=== PATIENT | male | born 1965 | race Two or more races ===

== ENCOUNTER 2018-07-05 11:23 | Inpatient (IN) | payer OTHER ==
[2018-07-05 13:21] VITALS: BMI 21.8
--- NOTE | 2018-07-05 17:04 | HP ---
CIWA Score - CIWA Score Nausea/Vomitin Muscle Tremors: 2 Anxiety: 2 Agitation: 2 Paroxysmal Sweats: 2 Orientation: 0-Oriented Tacttile Disturbances: 1-Very Mild Itch/Numbness Auditory Disturbances: 1-Very Mild Visual Disturbances: 0-None Headache: 0-None Present CIWA-Ar Total Score: 13 Admission [facility] - HPI Chief Complaint: alcohol withdrawal symptoms Allergies/Adverse Reactions: Allergies Allergy/AdvReac Type Severity Reaction Status Date / Time NKA Allergy Uncoded 07/05/18 13:53 NO NKOWN DRUG ALLERGY Allergy Uncoded 07/05/18 13:53 History of Present Illness: 52 yo male with hx of alcohol, heroin, cocaine and marijuana dependence is here seeking detox. Last detox [facility] in 2010. MMTP: Hever Osorio [phone] on 220 mg, last medicated 07/14/18.PMHX: HIV+, Hep C, depression. Denies suicidal / homicidal ideation, reports hx of suicide attempt in 1999. Reports no significant period of sobriety. Exam Limitations: No Limitations - Ebola screening Have you traveled outside of the country in the last 21 days: No Have you had contact with anyone from an Ebola affected area: No Have you been sick,other than usual withdrawal symptoms: No Do you have a fever: No - Review of Systems Constitutional: Chills, Diaphoresis, Changes in sleep, Other (fatigue) EENT: reports: No Symptoms Reported, Dental Problems (poro dentition) Respiratory: reports: No Symptoms reported Cardiac: reports: No Symptoms Reported GI: reports: Poor Appetite, Poor Fluid Intake, Vomiting, Indigestion : reports: No Symptoms Reported Musculoskeletal: reports: No Symptoms Reported Integumentary: reports: Pruritus (left hand) Neuro: reports: No Symptoms reported Endocrine: reports: Increased Thirst Hematology: reports: See HPI Psychiatric: reports: Orientated x3, Anxious Other Systems: Reviewed and Negative Patient History - Patient Medical History Hx Anemia: No Hx Asthma: No Hx Chronic Obstructive Pulmonary Disease (COPD): No Hx Cancer: No Hx Cardiac Disorders: No Hx Congestive Heart Failure: No Hx Hypertension: No Hx Hypercholesterolemia: No Hx Pacemaker: No HX Cerebrovascular Accident: No Hx Seizures: No Hx Dementia: No Hx Diabetes: No Hx Gastrointestinal Disorders: No Hx Liver Disease: Yes (Hep C ) Hx Genitourinary Disorders: No Hx Sexually Transmitted Disorders: No Hx Renal Disease (ESRD): No Hx Thyroid Disease: No Hx Human Immunodeficiency Virus (HIV): Yes Hx Hepatitis C: Yes Hx Depression: Yes Hx Suicide Attempt: Yes (1999) Hx Schizophrenia: No - Patient Surgical History Past Surgical History: No Hx Neurologic Surgery: No Hx Cataract Extraction: No Hx Cardiac Surgery: No Hx Lung Surgery: No Hx Breast Surgery: No Hx Breast Biopsy: No Hx Abdominal Surgery: No Hx Appendectomy: No Hx Cholecystectomy: No Hx Genitourinary Surgery: No Hx Section: No Hx Orthopedic Surgery: No Anesthesia Reaction: No - PPD History Previous Implant?: No Documented Results: Negative w/o proof Implanted On Prior [facility] Admission?: No PPD to be Administered?: Yes - Smoking Cessation Smoking history: Current every day smoker Have you smoked in the past 12 months: Yes Aproximately how many cigarettes per day: 10 Hx Chewing Tobacco Use: No Initiated information on smoking cessation: Yes 'Breaking Loose' booklet given: 07/05/18 - Substance & Tx. History Hx Alcohol Use: Yes Hx Substance Use: Yes Substance Use Type: Alcohol, Cocaine, Heroin, Marijuana Hx Substance Use Treatment: Yes ([facility] 2010) - Substances Abused Alcohol Route: Oral Frequency: Daily Amount used: VODKA- 4PTS BEERS- 5CANS Age of first use: 8 Date of Last Use: 07/05/18 Heroin Route: Inhalation Frequency: 1-2 times per week Amount used: 2BAGS Age of first use: 12 Date of Last Use: 07/02/18 Cocaine Route: Inhalation Frequency: Daily Amount used: 5BAGS Age of first use: 9 Date of Last Use: 07/05/18 Family Disease History - Family Disease History Family History: Unable to Obtain Admission Physical Exam S - Vital Signs Vital Signs: Vital Signs - 24 hr 07/05/18 13:11 Temperature 97.1 F L Pulse Rate 61 Respiratory 18 Rate Blood Pressure 106/71 - Physical General Appearance: Yes: Disheveled, Thin, Sweating, Anxious HEENTM: Yes: EOMI, Hearing grossly Normal, Normal ENT Inspection, Normocephalic , Normal Voice, JAYCEE, Pharynx Normal, Tm's normal, Other (poor dentition) Respiratory: Yes: Chest Non-Tender, Lungs Clear, Normal Breath Sounds, No Respiratory Distress, No Accessory Muscle Use Neck: Yes: No masses,lesions,Nodules, Trachea in good position Breast: Yes: Breast Exam Deferred Cardiology: Yes: Regular Rhythm, Regular Rate Abdominal: Yes: Normal Bowel Sounds, Non Tender, Soft Genitourinary: Yes: Within Normal Limits Back: Yes: Normal Inspection Musculoskeletal: Yes: full range of Motion, Gait Steady, Pelvis Stable Extremities: Yes: Normal Capillary Refill, Normal Inspection, Normal Range of Motion, Non-Tender Neurological: Yes: review trainer II-XII NML intact, Fully Oriented, Alert, Motor Strength 5/5, Depressed Affect Integumentary: Yes: Within Normal Limits, Warm, Diaphoresis Lymphatic: Yes: Within Normal Limits - Diagnostic (1) Opioid dependence on agonist therapy Current Visit: Yes Status: Acute (2) Alcohol dependence with withdrawal Current Visit: Yes Status: Acute Qualifiers: Complication of substance-induced condition: uncomplicated Qualified Code(s ): F10.230 - Alcohol dependence with withdrawal, uncomplicated (3) Marijuana dependence Current Visit: Yes Status: Acute (4) Cocaine dependence Current Visit: Yes Status: Acute Qualifiers: Substance use status: uncomplicated Qualified Code(s): F14.20 - Cocaine dependence, uncomplicated (5) HIV (human immunodeficiency virus infection) Current Visit: Yes Status: Chronic Comment: No meds reported (6) Hepatitis C Current Visit: Yes Status: Chronic Qualifiers: Viral hepatitis chronicity: chronic Hepatic coma status: without hepatic coma Qualified Code(s): B18.2 - Chronic viral hepatitis C Cleared for Admission [facility] - Detox or Rehab [facility] Level of Care: Medically Managed Detox Regimen/Protocol: Librium [facility] Breath Alcohol Content Breath Alcohol Content: 0 Urine Drug Screen - Results Drug Screen Negative: No Urine Drug Screen Results: TASHA-Cocaine, PCP-Phencyclidine, MTD-Methadone
[2018-07-05] MEDS ORDERED: MENTHOL/PHENOL 1 EACH UD MM PRN (17:09)
[2018-07-05] MEDS ORDERED: IBUPROFEN 400 MG TABLET (FP) PO PRN (17:09)
[2018-07-05] MEDS ORDERED: MAG HYDROX/AL HYDROX/SIMETH 30 ML UNIT-DOSE CUP PO PRN (17:09)
[2018-07-05] MEDS ORDERED: MAGNESIUM HYDROX 2400MG/30ML ORAL SUSPENSION 30 ML CUP PO PRN (17:09)
[2018-07-05] MEDS ORDERED: LOPERAMIDE HCL 2 MG CAPSULE PO PRN (17:09)
[2018-07-05] MEDS ORDERED: ACETAMINOPHEN 325 MG TABLET (FP) PO PRN (17:09)
[2018-07-05] MEDS ORDERED: chlordiazePOXIDE HCL 25 MG CAPSULE PO PRN (17:09)
[2018-07-05] MEDS ORDERED: hydrOXYzine PAMOATE 50 MG CAPSULE (FP) PO PRN (17:09)
[2018-07-05] MEDS ORDERED: NICOTINE POLACRILEX 2 MG GUM BC PRN (17:09)
[2018-07-05] MEDS ORDERED: P-EPHED 60MG/TRIPROLIDI 2.5MG TABLET PO PRN (17:09)
[2018-07-05] MEDS ORDERED: MAGNESIUM CITRATE 300 ML BOTTLE PO PRN (17:09)
[2018-07-05] MEDS ORDERED: guaiFENesin/D-METHORPHAN HB 10 ML UNIT-DOSE CUPS PO PRN (17:09)
[2018-07-05] MEDS ORDERED: chlordiazePOXIDE HCL 25 MG CAPSULE PO ONE (17:45)
[2018-07-05] MEDS ORDERED: MELATONIN 5 MG TABLETS PO PRN (22:00)
[2018-07-05] MEDS: THIAMINE HCL 100 MG TABLET (FP) PO SCH (22:08)
[2018-07-05] MEDS: chlordiazePOXIDE HCL 25 MG CAPSULE PO SCH (22:09)
[2018-07-06] MEDS: chlordiazePOXIDE HCL 25 MG CAPSULE PO SCH ×4 (05:12→22:08)
--- NOTE | 2018-07-06 08:42 | EKG ---
Test Reason : Blood Pressure : / mmHG Vent. Rate : 056 BPM Atrial Rate : 056 BPM P-R Int : 164 ms QRS Dur : 114 ms QT Int : 462 ms P-R-T Axes : 006 -64 051 degrees QTc Int : 445 ms SINUS BRADYCARDIA INCOMPLETE RIGHT BUNDLE BRANCH BLOCK LEFT ANTERIOR FASCICULAR BLOCK ABNORMAL ECG NO PREVIOUS ECGS AVAILABLE Confirmed by UYEN SANDOVAL MD ([id number]) on 07/06/2018 8:41:59 AM Referred By: Confirmed By:UYEN SANDOVAL MD
--- NOTE | 2018-07-06 08:44 | EKG ---
Test Reason : Blood Pressure : / mmHG Vent. Rate : 049 BPM Atrial Rate : 049 BPM P-R Int : 180 ms QRS Dur : 104 ms QT Int : 478 ms P-R-T Axes : 061 -68 052 degrees QTc Int : 431 ms SINUS BRADYCARDIA INCOMPLETE RIGHT BUNDLE BRANCH BLOCK LEFT ANTERIOR FASCICULAR BLOCK SEPTAL INFARCT , AGE UNDETERMINED ABNORMAL ECG NO PREVIOUS ECGS AVAILABLE Confirmed by UYEN SANDOVAL MD ([id number]) on 07/06/2018 8:44:13 AM Referred By: Confirmed By:UYEN SANDOVAL MD
[2018-07-06] MEDS: PRENATAL VITAMINS W/ FOLIC ACID TABLET (FP) PO SCH (10:15)
[2018-07-06] MEDS: NICOTINE 14 MG/24 HOURS TOPICAL PATCH TD SCH (10:15)
[2018-07-06 10:41] LABS: HEMATOCRIT 39.4 % (35.4-49); MCH 32.5 pg (25.7-33.7); MCHC 33.1 g/dl (32.0-35.9); MEAN CELL VOLUME 98.3 fl (80-96); MEAN PLT VOLUME 8.3 fl (7.5-11.1); PLATELET COUNT 266 K/MM3 (134-434); RBC 4.01 M/mm3 (4.00-5.60); RDW 14.5 % (11.9-15.9); WHITE BLOOD COUNT 6.6 K/mm3 (4.0-10.0)
[2018-07-06 10:58] LABS: CHLORIDE 106 mmol/L (98-107); POTASSIUM 3.9 mmol/L (3.5-5.1); SODIUM 143 mmol/L (136-145)
[2018-07-06 11:10] LABS: ALBUMIN 3.5 g/dl (3.4-5.0); ALK PHOS 130 U/L (45-117); ANION GAP 7 (8-16); BILIRUBIN,TOTAL 0.2 mg/dL (0.2-1.0); BLOOD UREA NITROGEN 20 mg/dL (7-18); CALCIUM 8.3 mg/dL (8.5-10.1); CO2 30 mmol/L (21-32); CREATININE 1.2 mg/dL (0.7-1.3); GLUCOSE,RANDOM 111 mg/dL (74-106); SGOT/AST 23 U/L (15-37); SGPT/ALT 22 U/L (12-78); TOT PROT 7.4 g/dl (6.4-8.2)
--- NOTE | 2018-07-06 11:44 | PN ---
[facility] CIWA - CIWA Score Nausea/Vomitin-No Nausea/No Vomiting Muscle Tremors: 2 Anxiety: 4-Mod. Anxious/Guarded Agitation: 2 Paroxysmal Sweats: 3 Orientation: 0-Oriented Tacttile Disturbances: 2-Mild Itch/Numbness/Burn Auditory Disturbances: 0-None Visual Disturbances: 3-Moderate Sensitivity Headache: 0-None Present CIWA-Ar Total Score: 16 BHS Progress Note (SOAP) Subjective: Fatigue, Sweating, Tremors. Objective: PATIENT A & O X 3, OBSERVED AMBULATING ON UNIT. NO ACUTE DISTRESS. 07/06/18 11:41 Vital Signs Temperature 97.1 F L 07/06/18 09:46 Pulse Rate 59 L 07/06/18 09:46 Respiratory Rate 18 07/06/18 09:46 Blood Pressure 130/76 07/06/18 09:46 O2 Sat by Pulse Oximetry (%) Laboratory Tests 07/06/18 07/06/18 06:00 06:00 WBC 6.6 RBC 4.01 Hgb 13.0 Hct 39.4 MCV 98.3 H MCH 32.5 MCHC 33.1 RDW 14.5 Plt Count 266 MPV 8.3 Sodium 143 Potassium 3.9 Chloride 106 Carbon Dioxide 30 Anion Gap 7 L BUN 20 H Creatinine 1.2 Creat Clearance w eGFR > 60 Random Glucose 111 H Calcium 8.3 L Total Bilirubin 0.2 AST 23 ALT 22 Alkaline Phosphatase 130 H Total Protein 7.4 Albumin 3.5 LABS NOTED. RPR, UA RESULTS PENDING. 07/06/18 11:42 Assessment: 07/06/18 11:42 WITHDRAWAL SYMPTOMS. Plan: CONTINUE DETOX. NOTE: DAILY MMTP DOSE WAS VERIFIED YESTERDAY (07/05/2018) AT TIME OF ADMISSION TO DETOX. HOWEVER, DOSE NOT ORDERED AT THAT TIME. MMTP DAILY DOSE RESUMED TODAY.
[2018-07-06] MEDS ORDERED: METHADONE HCL 10 MG TABLET PO SCH (11:45)
[2018-07-06] MEDS ORDERED: METHADONE HCL 10 MG TABLET ONE (11:52)
[2018-07-06] MEDS ORDERED: METHADONE HCL 40 MG DISPERSABLE TABLET ONE (11:53)
[2018-07-06] MEDS: METHADONE 200 MG, METHADONE 20 MG PO SCH (11:55)
--- NOTE | 2018-07-06 14:10 | CONSULT ---
[facility] Psychiatric Consult - Data Date of interview: 07/06/18 Admission source: [facility] Identifying data: Patient is a 52 year old single male, without kids, unemployed , and currently homeless. This is one of multiple admissions for patient. Pt. admitted to for alcohol and cocaine dependence. Substance Abuse History: Smoking Cessation. Smoking history: Current every day smoker. Have you smoked in the past 12 months: Yes. Aproximately how many cigarettes per day: 10. Hx Chewing Tobacco Use: No. Initiated information on smoking cessation: Yes. 'Breaking Loose' booklet given: 07/05/18. - Substance & Tx. History. Hx Alcohol Use: Yes. Hx Substance Use: Yes. Substance Use Type : Alcohol, Cocaine, Heroin, Marijuana. Hx Substance Use Treatment: Yes ([facility] 2010). - Substances Abused. Alcohol. Route: Oral. Frequency: Daily. Amount used: VODKA- 4PTS BEERS- 5CANS. Age of first use: 8. Date of Last Use : 07/05/18. Heroin. Route: Inhalation. Frequency: 1-2 times per week. Amount used: 2BAGS. Age of first use: 12. Date of Last Use: 07/02/18. Cocaine. Route: Inhalation. Frequency: Daily. Amount used: 5BAGS. Age of first use: 9. Date of Last Use: 07/05/18 Medical History: Hep C Psychiatric History: Patient denies h/o psychiatric hospitalizations. OPD is provided at [facility] outpatient clinic. Pt. is prescribed abilify 5mg daily and is on Methadone maintenance of 220mg daily. Pt denies h/o suicide attempt. Physical/Sexual Abuse/Trauma History: Denies. Mental Status Exam - Mental Status Exam Alert and Oriented to: Time, Place, Person Cognitive Function: Good Patient Appearance: Well Groomed Mood: Euthymic Affect: Mood Congruent Patient Behavior: Cooperative Speech Pattern: Appropriate Voice Loudness: Normal Thought Process: Goal Oriented Thought Disorder: Not Present Hallucinations: Denies Suicidal Ideation: Denies Homicidal Ideation: Denies Insight/Judgement: Poor Sleep: Fair Appetite: Fair Muscle strength/Tone: Normal Gait/Station: Normal Psychiatric Findings - Problem List ([place] 1, 2,3) (1) Substance induced mood disorder Current Visit: Yes Status: Acute (2) Alcohol dependence with withdrawal Current Visit: Yes Status: Acute Qualifiers: Complication of substance-induced condition: uncomplicated Qualified Code(s ): F10.230 - Alcohol dependence with withdrawal, uncomplicated (3) Cocaine dependence Current Visit: Yes Status: Acute Qualifiers: Substance use status: uncomplicated Qualified Code(s): F14.20 - Cocaine dependence, uncomplicated (4) Opioid dependence on agonist therapy Current Visit: Yes Status: Chronic - Initial Treatment Plan Initial Treatment Plan: Psychoeducation provided. Detoxification in progress. Abilify 5mg PO daily ordered. Benefits and side effects discussed. Verbal consent given.
[2018-07-06] MEDS: ARIPiprazole 5 MG TABLET (FP) PO SCH (15:13)
[2018-07-06 18:45] LABS: URINE APPEARANCE TURBID; URINE BILIRUBIN NEGATIVE (<2.0 mg/dL); URINE COLOR AMBER; URINE GLUCOSE (UA) NEGATIVE (NEGATIVE); URINE KETONE NEGATIVE (NEGATIVE); URINE NITRITE POSITIVE (NEGATIVE); URINE PROTEIN NEGATIVE (NEGATIVE); URINE UROBILINOGEN NEGATIVE mg/dL (0.2-1.0)
[2018-07-06 18:55] LABS: URINE LEUK ESTERASE 2+ (NEGATIVE)
[2018-07-06 19:03] LABS: URINE BACTERIA MODERATE /hpf (NONE SEEN); URINE MUCUS MANY
[2018-07-06] MEDS: THIAMINE HCL 100 MG TABLET (FP) PO SCH (22:08)
[2018-07-07] MEDS ORDERED: METHADONE HCL 10 MG TABLET ONE (04:55)
[2018-07-07] MEDS ORDERED: METHADONE HCL 40 MG DISPERSABLE TABLET ONE (04:56)
[2018-07-07] MEDS: METHADONE 200 MG, METHADONE 20 MG PO SCH (05:32)
[2018-07-07] MEDS: chlordiazePOXIDE HCL 25 MG CAPSULE PO SCH ×3 (05:32→18:56)
--- NOTE | 2018-07-07 09:09 | EKG ---
Test Reason : Blood Pressure : / mmHG Vent. Rate : 058 BPM Atrial Rate : 058 BPM P-R Int : 186 ms QRS Dur : 112 ms QT Int : 468 ms P-R-T Axes : 066 -67 050 degrees QTc Int : 459 ms SINUS BRADYCARDIA INCOMPLETE RIGHT BUNDLE BRANCH BLOCK LEFT ANTERIOR FASCICULAR BLOCK ABNORMAL ECG WHEN COMPARED WITH ECG OF 05-JUL-2018 21:19, NO SIGNIFICANT CHANGE WAS FOUND Confirmed by SUKHDEV CAMPBELL, MYRTLE ([id number]) on 07/07/2018 9:09:00 AM Referred By: Confirmed By:MYRTLE SANTIZO MD
[2018-07-07] MEDS: NICOTINE 14 MG/24 HOURS TOPICAL PATCH TD SCH (10:20)
[2018-07-07] MEDS: PRENATAL VITAMINS W/ FOLIC ACID TABLET (FP) PO SCH (10:20)
[2018-07-07] MEDS: ARIPiprazole 5 MG TABLET (FP) PO SCH (10:20)
--- NOTE | 2018-07-07 13:46 | PN ---
[facility] CIWA - CIWA Score Nausea/Vomitin-No Nausea/No Vomiting Muscle Tremors: 4-Moderate,w/Arms Extend Anxiety: 4-Mod. Anxious/Guarded Agitation: 4-Moderately Restless Paroxysmal Sweats: 1-Minimal Palms Moist Orientation: 0-Oriented Tacttile Disturbances: 0-None Auditory Disturbances: 0-None Visual Disturbances: 0-None Headache: 0-None Present CIWA-Ar Total Score: 13 S Progress Note (SOAP) Subjective: ANXIETY,SWEATS, CHILLS, FATIGUE. Objective: 07/07/18 13:45 Vital Signs 07/07/18 07/07/18 07/07/18 06:29 09:25 13:12 Temperature 98.5 F 97 F L 98.1 F Pulse Rate 62 58 L 57 L Respiratory 18 20 18 Rate Blood Pressure 120/74 121/78 123/71 Laboratory Tests 07/05/18 07/06/18 07/06/18 18:12 06:00 06:00 WBC 6.6 RBC 4.01 Hgb 13.0 Hct 39.4 MCV 98.3 H MCH 32.5 MCHC 33.1 RDW 14.5 Plt Count 266 MPV 8.3 Sodium 143 Potassium 3.9 Chloride 106 Carbon Dioxide 30 Anion Gap 7 L BUN 20 H Creatinine 1.2 Creat Clearance w eGFR > 60 Random Glucose 111 H Calcium 8.3 L Total Bilirubin 0.2 AST 23 ALT 22 Alkaline Phosphatase 130 H Total Protein 7.4 Albumin 3.5 Urine Color Sravani Urine Appearance Turbid Urine pH 5.0 Ur Specific [place] 1.020 Urine Protein Negative Urine Glucose (UA) Negative Urine Ketones Negative Urine Blood Negative Urine Nitrite Positive Urine Bilirubin Negative Urine Urobilinogen Negative Ur Leukocyte Esterase 2+ H Urine WBC (Auto) 13 Urine RBC (Auto) 1 Urine Bacteria Moderate Urine Mucus Many RPR Titer 07/06/18 06:00 WBC RBC Hgb Hct MCV MCH MCHC RDW Plt Count MPV Sodium Potassium Chloride Carbon Dioxide Anion Gap BUN Creatinine Creat Clearance w eGFR Random Glucose Calcium Total Bilirubin AST ALT Alkaline Phosphatase Total Protein Albumin Urine Color Urine Appearance Urine pH Ur Specific [place] Urine Protein Urine Glucose (UA) Urine Ketones Urine Blood Urine Nitrite Urine Bilirubin Urine Urobilinogen Ur Leukocyte Esterase Urine WBC (Auto) Urine RBC (Auto) Urine Bacteria Urine Mucus RPR Titer Nonreactive UA ABNORMAL Assessment: 07/07/18 13:46 WITHDRAWAL SX UTI Plan: CONTINUE DETOX
[2018-07-07] MEDS ORDERED: SULFAMETHOXAZOLE/TRIMETHOPRIM 800MG/160MG D.S. TABLET PO ONE (14:30)
[2018-07-07] MEDS: SULFAMETHOXAZOLE/TRIMETHOPRIM 800MG/160MG D.S. TABLET PO SCH (22:23)
[2018-07-07] MEDS: chlordiazePOXIDE 5 MG CAPSULE PO SCH (22:23)
[2018-07-07] MEDS: THIAMINE HCL 100 MG TABLET (FP) PO SCH (22:23)
[2018-07-08] MEDS ORDERED: METHADONE HCL 40 MG DISPERSABLE TABLET ONE (03:26)
[2018-07-08] MEDS ORDERED: METHADONE HCL 10 MG TABLET ONE (03:26)
[2018-07-08] MEDS: METHADONE 200 MG, METHADONE 20 MG PO SCH (05:47)
[2018-07-08] MEDS: chlordiazePOXIDE 5 MG CAPSULE PO SCH ×3 (05:47→17:48)
[2018-07-08] MEDS: NICOTINE 14 MG/24 HOURS TOPICAL PATCH TD SCH (10:38)
[2018-07-08] MEDS: SULFAMETHOXAZOLE/TRIMETHOPRIM 800MG/160MG D.S. TABLET PO SCH ×2 (10:38→22:12)
[2018-07-08] MEDS: PRENATAL VITAMINS W/ FOLIC ACID TABLET (FP) PO SCH (10:38)
[2018-07-08] MEDS: ARIPiprazole 5 MG TABLET (FP) PO SCH (10:39)
--- NOTE | 2018-07-08 15:55 | PN ---
[facility] Progress Note (SOAP) Subjective: Tremor, interrupted sleep, sweating Objective: 07/08/18 15:52 Last Vital Signs Temp Pulse Resp BP Pulse Ox 98.1 F 56 L 18 104/68 07/08/18 13:30 07/08/18 13:30 07/08/18 13:30 07/08/18 13:30 Laboratory Tests 07/05/18 07/06/18 07/06/18 18:12 06:00 06:00 WBC 6.6 RBC 4.01 Hgb 13.0 Hct 39.4 MCV 98.3 H MCH 32.5 MCHC 33.1 RDW 14.5 Plt Count 266 MPV 8.3 Sodium 143 Potassium 3.9 Chloride 106 Carbon Dioxide 30 Anion Gap 7 L BUN 20 H Creatinine 1.2 Creat Clearance w eGFR > 60 Random Glucose 111 H Calcium 8.3 L Total Bilirubin 0.2 AST 23 ALT 22 Alkaline Phosphatase 130 H Total Protein 7.4 Albumin 3.5 Urine Color Sravani Urine Appearance Turbid Urine pH 5.0 Ur Specific [place] 1.020 Urine Protein Negative Urine Glucose (UA) Negative Urine Ketones Negative Urine Blood Negative Urine Nitrite Positive Urine Bilirubin Negative Urine Urobilinogen Negative Ur Leukocyte Esterase 2+ H Urine WBC (Auto) 13 Urine RBC (Auto) 1 Urine Bacteria Moderate Urine Mucus Many RPR Titer 07/06/18 06:00 WBC RBC Hgb Hct MCV MCH MCHC RDW Plt Count MPV Sodium Potassium Chloride Carbon Dioxide Anion Gap BUN Creatinine Creat Clearance w eGFR Random Glucose Calcium Total Bilirubin AST ALT Alkaline Phosphatase Total Protein Albumin Urine Color Urine Appearance Urine pH Ur Specific [place] Urine Protein Urine Glucose (UA) Urine Ketones Urine Blood Urine Nitrite Urine Bilirubin Urine Urobilinogen Ur Leukocyte Esterase Urine WBC (Auto) Urine RBC (Auto) Urine Bacteria Urine Mucus RPR Titer Nonreactive Labs reviewed: bun 20, UA shows nitrite positive (acute UTI) Assessment: 07/08/18 15:54 Withdrawal symptoms Noted with azotemia and acute UTI Plan: Continue detox Azotemia: encouraged PO hydration (water) Acute UTI: encouraged to drink lots of water, repeat UA, send urine culture/ sensitivity. Patient is on bactrim prophylaxis for HIV (not sure if he has been compliant). Need urine culture in order to decide whether or not to initiate treatment as patient already on bactrim.
[2018-07-08] MEDS: THIAMINE HCL 100 MG TABLET (FP) PO SCH (22:13)
[2018-07-08] MEDS: chlordiazePOXIDE HCL 10 MG CAPSULE PO SCH (22:13)
[2018-07-09] MEDS ORDERED: METHADONE HCL 10 MG TABLET ONE (04:40)
[2018-07-09] MEDS ORDERED: METHADONE HCL 40 MG DISPERSABLE TABLET ONE (04:41)
[2018-07-09] MEDS: METHADONE 200 MG, METHADONE 20 MG PO SCH (06:10)
[2018-07-09] MEDS: chlordiazePOXIDE HCL 10 MG CAPSULE PO SCH (06:10)
[2018-07-09 06:35] VITALS: BP 110/68; PULSE 57; TEMP 98.6
--- NOTE | 2018-07-09 08:43 | PN ---
[facility] Progress Note (SOAP) Subjective: DETOX COMPLETED. ALERT O X 3. NAD. Objective: 07/09/18 13:37 Vital Signs 07/09/18 06:34 Temperature 98.6 F Pulse Rate 57 L Respiratory 18 Rate Blood Pressure 110/68 Laboratory Tests 07/05/18 07/06/18 07/06/18 18:12 06:00 06:00 WBC 6.6 RBC 4.01 Hgb 13.0 Hct 39.4 MCV 98.3 H MCH 32.5 MCHC 33.1 RDW 14.5 Plt Count 266 MPV 8.3 Sodium 143 Potassium 3.9 Chloride 106 Carbon Dioxide 30 Anion Gap 7 L BUN 20 H Creatinine 1.2 Creat Clearance w eGFR > 60 Random Glucose 111 H Calcium 8.3 L Total Bilirubin 0.2 AST 23 ALT 22 Alkaline Phosphatase 130 H Total Protein 7.4 Albumin 3.5 Urine Color Sravani Urine Appearance Turbid Urine pH 5.0 Ur Specific [place] 1.020 Urine Protein Negative Urine Glucose (UA) Negative Urine Ketones Negative Urine Blood Negative Urine Nitrite Positive Urine Bilirubin Negative Urine Urobilinogen Negative Ur Leukocyte Esterase 2+ H Urine WBC (Auto) 13 Urine RBC (Auto) 1 Urine Bacteria Moderate Urine Mucus Many RPR Titer 07/06/18 06:00 WBC RBC Hgb Hct MCV MCH MCHC RDW Plt Count MPV Sodium Potassium Chloride Carbon Dioxide Anion Gap BUN Creatinine Creat Clearance w eGFR Random Glucose Calcium Total Bilirubin AST ALT Alkaline Phosphatase Total Protein Albumin Urine Color Urine Appearance Urine pH Ur Specific [place] Urine Protein Urine Glucose (UA) Urine Ketones Urine Blood Urine Nitrite Urine Bilirubin Urine Urobilinogen Ur Leukocyte Esterase Urine WBC (Auto) Urine RBC (Auto) Urine Bacteria Urine Mucus RPR Titer Nonreactive PT DID NOT FURNISH REPEAT UA OR INITIAL UC. PT HAS A COPY OF LAB RESULTS AND HAS BEEN INSTRUCTED TO FOLLOW UP WITH HIS PMD AT [facility]. PT HAS RX BACTRIM DS SENT TO [facility] FOR LOAN CONSULTANT TODAY AFTER DISCHARGE. Assessment: 07/09/18 13:42 MEDICALLY STABLE Plan: D/C PT TODAY
--- NOTE | 2018-07-09 08:44 | DS ---
[facility] Detox Discharge Summary Admission Date: 07/05/18 Discharge Date: 07/09/18 - History Present History: Alcohol Dependence Additional Comments: DETOX COMPLETED. ALERT O X3. NAD. Pertinent Past History: PLEASE SEE DX BELOW - Physical Exam Results Vital Signs: Vital Signs Temperature 98.6 F 07/09/18 06:34 Pulse Rate 57 L 07/09/18 06:34 Respiratory Rate 18 07/09/18 06:34 Blood Pressure 110/68 07/09/18 06:34 O2 Sat by Pulse Oximetry (%) Pertinent Admission Physical Exam Findings: WITHDRAWAL SX Laboratory Tests 07/05/18 07/06/18 07/06/18 18:12 06:00 06:00 WBC 6.6 RBC 4.01 Hgb 13.0 Hct 39.4 MCV 98.3 H MCH 32.5 MCHC 33.1 RDW 14.5 Plt Count 266 MPV 8.3 Sodium 143 Potassium 3.9 Chloride 106 Carbon Dioxide 30 Anion Gap 7 L BUN 20 H Creatinine 1.2 Creat Clearance w eGFR > 60 Random Glucose 111 H Calcium 8.3 L Total Bilirubin 0.2 AST 23 ALT 22 Alkaline Phosphatase 130 H Total Protein 7.4 Albumin 3.5 Urine Color Sravani Urine Appearance Turbid Urine pH 5.0 Ur Specific [place] 1.020 Urine Protein Negative Urine Glucose (UA) Negative Urine Ketones Negative Urine Blood Negative Urine Nitrite Positive Urine Bilirubin Negative Urine Urobilinogen Negative Ur Leukocyte Esterase 2+ H Urine WBC (Auto) 13 Urine RBC (Auto) 1 Urine Bacteria Moderate Urine Mucus Many RPR Titer 07/06/18 06:00 WBC RBC Hgb Hct MCV MCH MCHC RDW Plt Count MPV Sodium Potassium Chloride Carbon Dioxide Anion Gap BUN Creatinine Creat Clearance w eGFR Random Glucose Calcium Total Bilirubin AST ALT Alkaline Phosphatase Total Protein Albumin Urine Color Urine Appearance Urine pH Ur Specific [place] Urine Protein Urine Glucose (UA) Urine Ketones Urine Blood Urine Nitrite Urine Bilirubin Urine Urobilinogen Ur Leukocyte Esterase Urine WBC (Auto) Urine RBC (Auto) Urine Bacteria Urine Mucus RPR Titer Nonreactive - Treatment Hospital Course: Detox Protocol Followed, Detoxed Safely, Responded well, Discharged Condition Good - Medication Discharge Medications: Ambulatory Orders Aripiprazole [Abilify] 5 mg PO DAILY 07/06/18 Sulfamethoxazole/Trimethoprim [Bactrim DS -] 1 each PO BID #10 tablet 07/09/18 - Diagnosis (1) Alcohol dependence with withdrawal Status: Acute Qualifiers: Complication of substance-induced condition: uncomplicated Qualified Code(s ): F10.230 - Alcohol dependence with withdrawal, uncomplicated (2) Marijuana dependence Status: Acute (3) HIV (human immunodeficiency virus infection) Status: Chronic (4) Hepatitis C Status: Chronic Qualifiers: Viral hepatitis chronicity: chronic Hepatic coma status: without hepatic coma Qualified Code(s): B18.2 - Chronic viral hepatitis C (5) Cocaine dependence Status: Acute Qualifiers: Substance use status: uncomplicated Qualified Code(s): F14.20 - Cocaine dependence, uncomplicated (6) Opioid dependence on agonist therapy Status: Chronic - AMA Did Patient Leave Against Medical Advice: No
== END 2018-07-09 09:49 | disposition home or self-care (01) | DRG 773 ==
LOC: YASAS 11:23 → Y3N 17:03
PROVIDERS: ADMIT Surgery; ATTEND Surgery
PROC: HZ2ZZZZ Detoxification Services for Substance Abuse Treatment (ICD-10-PCS; principal; 2018-07-05)
DX: F10.230 Alcohol dependence with withdrawal, uncomplicated (principal); F11.20 Opioid dependence, uncomplicated; F14.20 Cocaine dependence, uncomplicated; F12.20 Cannabis dependence, uncomplicated; F17.210 Nicotine dependence, cigarettes, uncomplicated; F19.24 Other psychoactive substance dependence with psychoactive substance-induced mood disorder; Z21 Asymptomatic human immunodeficiency virus [HIV] infection status; B18.2 Chronic viral hepatitis C; N39.0 Urinary tract infection, site not specified; R79.89 Other specified abnormal findings of blood chemistry
CPT/HCPCS: 36415; 80053; 81003; 81015; 85027; 86593; 93005; 93010